=== PATIENT | male | born 2000 | race Hispanic/Latino ===

== ENCOUNTER 2023-02-27 14:22 | Emergency (ER) | payer SELFPAY ==
[2023-02-27] MEDS ORDERED: DIAZEPAM 5 MG TABLET ONE (15:21)
[2023-02-27] MEDS ORDERED: HYDROCODONE/APAP 5/325 MG TAB ONE (15:21)
[2023-02-27] MEDS ORDERED: TDAP (DIPHTH,PERTUSS(ACELL),TET VAC) 0.5 ML VIAL IMVAC ONE (15:22)
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
--- NOTE | 2023-02-27 16:03 | RAD REPORT ---
EXAM DESCRIPTION: RAD - Forearm Left - 02/27/2023 3:54 pm CLINICAL HISTORY: PAIN COMPARISON: <Comparisons> FINDINGS: No fracture or dislocation seen.
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
[2023-02-27 16:53] VITALS: BP 134/69; TEMP 97.5; O2SAT 100
== END 2023-02-27 16:49 | disposition home or self-care (01) ==
LOC: ER 14:22
DX: T14.90XA Injury, unspecified, initial encounter (principal); V49.49XA Driver injured in collision with other motor vehicles in traffic accident, initial encounter; Y92.410 Unspecified street and highway as the place of occurrence of the external cause
CPT/HCPCS: 70450; 71046; 72125; 96372; 99285

== ENCOUNTER 2024-06-03 15:40 | Emergency (ER) | payer SELFPAY ==
[2024-06-03] MEDS ORDERED: BUPIVACAINE 0.5% PF 10 ML VIAL ONE (15:55)
[2024-06-03] MEDS ORDERED: ONDANSETRON 4 MG/2 ML VIAL ONE (15:55)
[2024-06-03] MEDS ORDERED: LIDOCAINE 1% 20 ML MDV ONE (15:55)
[2024-06-03] MEDS ORDERED: MORPHINE 4 MG/ML SYR ONE ×2 (15:56→16:03)
[2024-06-03] MEDS ORDERED: TDAP (DIPHTH,PERTUSS(ACELL),TET VAC) 0.5 ML VIAL IMVAC ONE (16:00)
[2024-06-03] MEDS ORDERED: CEFAZOLIN SODIUM 1 GM/VIAL ONE (16:29)
[2024-06-03] MEDS ORDERED: CEPHALEXIN 250 MG CAP ONE (16:29)
[2024-06-03] MEDS ORDERED: NA CHLORIDE 0.9% 50 ML ONE (16:30)
--- NOTE | 2024-06-03 16:47 | RAD REPORT ---
Exam:Hand Left 3 View CLINICAL HISTORY: Left hand pain FINDINGS: Avulsion fracture second terminal tuft. No dislocation
--- NOTE | 2024-06-03 17:44 | EDPHYS ---
Physician Documentation [facility] Name: Arun Rojas Age: 24 yrs Sex: Male : 2000 Arrival Date: 06/03/2024 Time: 15:40 Bed 9 Private MD: ED Physician Ayan José HPI: 06/03 17:38 This 24 yrs old Male presents to ER via Ambulatory with complaints of marcial Laceration To Hand. 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 marcial The laceration(s) is(are) located on the palmar aspect of distal phalanx of left index finger. Onset: The symptoms/episode began/occurred just prior to arrival. Associated signs and symptoms: The patient has no apparent associated signs or symptoms. The patient has not experienced similar symptoms in the past. Historical: - Allergies: 16:10 No Known Allergies; jb4 - PMHx: 16:10 None; jb4 - PSHx: 16:10 None; jb4 - Immunization history:: Adult Immunizations unknown, Last tetanus immunization: unknown. - Infectious Disease History:: Denies. - Social history:: Smoking status: Patient denies any tobacco usage or history of. - Family history:: not pertinent. ROS: 17:38 Constitutional: Negative for fever, chills, and weight loss, Eyes: Negative for injury, marcial pain, redness, and discharge, ENT: Negative for injury, pain, and discharge, Neck: Negative for injury, pain, and swelling, Cardiovascular: Negative for chest pain, palpitations, and edema, Respiratory: Negative for shortness of breath, cough, wheezing, and pleuritic chest pain, Abdomen/GI: Negative for abdominal pain, nausea, vomiting, diarrhea, and constipation, Back: Negative for injury and pain, : Negative for injury, bleeding, discharge, and swelling, Skin: Negative for injury, rash, and discoloration, Neuro: Negative for headache, weakness, numbness, tingling, and seizure, Psych: Negative for depression, anxiety, suicide ideation, homicidal ideation, and hallucinations, Allergy/Immunology: Negative for hives, rash, and allergies, Endocrine: Negative for neck swelling, polydipsia, polyuria, polyphagia, and marked weight changes, Hematologic/Lymphatic: Negative for swollen nodes, abnormal bleeding, and unusual bruising, 17:38 MS/extremity: Positive for laceration, pain, of the palmar aspect of distal phalanx of left index finger, Exam: 17:38 Constitutional: This is a well developed, well nourished patient who is awake, alert, marcial and in no acute distress. Head/Face: Normocephalic, atraumatic. Eyes: Pupils equal round and reactive to light, extra-ocular motions intact. Lids and lashes normal. Conjunctiva and sclera are non-icteric and not injected. Cornea within normal limits. Periorbital areas with no swelling, redness, or edema. ENT: Nares patent. No nasal discharge, no septal abnormalities noted. Tympanic membranes are normal and external auditory canals are clear. Oropharynx with no redness, swelling, or masses, exudates, or evidence of obstruction, uvula midline. Mucous membranes moist. Neck: Trachea midline, no thyromegaly or masses palpated, and no cervical lymphadenopathy. Supple, full range of motion without nuchal rigidity, or vertebral point tenderness. No Meningismus. Chest/axilla: Normal chest wall appearance and motion. Nontender with no deformity. No lesions are appreciated. Cardiovascular: Regular rate and rhythm with a normal S1 and S2. No gallops, murmurs, or rubs. Normal PMI, no JVD. No pulse deficits. Respiratory: Lungs have equal breath sounds bilaterally, clear to auscultation and percussion. No rales, rhonchi or wheezes noted. No increased work of breathing, no retractions or nasal flaring. Abdomen/GI: Soft, non-tender, with normal bowel sounds. No distension or tympany. No guarding or rebound. No evidence of tenderness throughout. Back: No spinal tenderness. No costovertebral tenderness. Full range of motion. Skin: Warm, dry with normal turgor. Normal color with no rashes, no lesions, and no evidence of cellulitis. Neuro: Awake and alert, GCS 15, oriented to person, place, time, and situation. Cranial nerves II-XII grossly intact. Motor strength 5/5 in all extremities. Sensory grossly intact. Cerebellar exam normal. Normal gait. Psych: Awake, alert, with orientation to person, place and time. Behavior, mood, and affect are within normal limits. 17:38 Musculoskeletal/extremity: ROM: full active range of motion, full passive range of motion, limited active range of motion due to pain, limited passive range of motion due to pain, Circulation is intact in all extremities. Severe pain noted. Compartment Syndrome exam of affected extremity: is normal. Vital Signs: 16:06 BP 124 / 72; Pulse 87; Resp 16; Temp 98.9(O); Pulse Ox 98% on R/A; Weight 68.04 kg; jb4 Height 5 ft. 4 in. (R); Pain 10/10; 16:06 Body Mass Index 25.75 (68.04 kg, 162.56 cm) jb4 16:06 Pain Scale: Adult jb4 Laceration: 17:40 Wound Repair of 2cm ( 0.8in ) subcutaneous laceration to palmar aspect of distal marcial phalanx of left index finger. Irregularly shaped.. Distal neuro/vascular/tendon intact. Anesthesia: Local anesthetic administered with 1% lidocaine. Wound prep: Moderate cleansing by me. Skin closed with 6 5-0 Prolene using interrupted sutures and sterile technique. Dressed with Neosporin, non-adherent dressing. Patient tolerated well. MDM: 15:48 Medical Screening Exam initiated marcial 17:41 Data reviewed: vital signs, nurses notes, radiologic studies, plain films. [facility] Consideration of Admission/Observation Escalation of care including admission/observation considered. I considered the following discharge prescriptions or medication management in the emergency department Medications were administered in the Emergency Department. See MAR. Independent interpretation of the following test(s) in the Emergency Department X-Ray: My interpretation is left hand. Test considered but Not performed: Labs: no cbc, no comp met. Historians other than the Patient: Spouse/Significant Other: . Care significantly affected by the following chronic conditions: none. 06/03 15:56 Order name: Hand Left 3 View XRAY; Complete Time: 17:15 [facility] 06/03 15:56 Order name: Dressing - Wound; Complete Time: 16:25 [facility] 06/03 15:56 Order name: Gloves, Sterile; Complete Time: 16:25 [facility] 06/03 15:56 Order name: Prolene, Sutures; Complete Time: 16:25 [facility] 06/03 15:56 Order name: Setup Suture Tray; Complete Time: 16:25 [facility] Administered Medications: 16:24 Drug: Boostrix Tdap IM 0.5 ml IM once; as a single dose Route: IM; Site: right deltoid; jb4 17:44 Follow up: Response: No adverse reaction jb4 16:24 Drug: morphine IVP or IV 4 mg IVP once over 4 mins Route: IVP; Infused Over: 4 mins; jb4 Site: right antecubital; 17:44 Follow up: Response: No adverse reaction; Marked relief of symptoms jb4 16:24 Drug: Ondansetron IVP 4 mg IVP once; over 2 minutes Route: IVP; Site: right antecubital;jb4 17:44 Follow up: Response: No adverse reaction; Marked relief of symptoms jb4 16:40 Drug: ceFAZolin IVPB 1 grams IVPB once Route: IVPB; Site: right antecubital; jb4 17:10 Follow up: Response: No adverse reaction; IV Status: Completed infusion; IV Intake: [id number] 16:40 Drug: Cephalexin PO 500 mg PO once Route: PO; jb4 17:44 Follow up: Response: No adverse reaction jb4 17:31 Drug: Bupivacaine Infiltration (0.5 %) 5 ml 10 ml Infiltration once {Note: administered jb4 by ER physician .} Volume: 10 ml; Route: Infiltration; 17:31 Drug: Lidocaine Infiltration (1 %) 5 ml 20 ml Infiltration once; to bedside {Note: jb4 administered by ER physician .} Volume: 20 ml; Route: Infiltration; 18:08 Drug: Ewvqpthn-Aldeumghuh-Cyapuqsoe Topical Ointment 1 application Topical once Route: jb4 Topical; Site: wound; 18:08 Follow up: Response: Medication administered at discharge. jb4 Disposition Summary: 06/03/24 17:44 Discharge Ordered Notes: Location: Home marcial Problem: new marcial Symptoms: have improved marcial Condition: Stable marcial Diagnosis - Laceration without foreign body of left hand, initial encounter - open distal tuft marcial fracture, 1/4 nail and bed trauma Followup: marcial - With: Private Physician - When: 2 - 3 days - Reason: Recheck today's complaints, Continuance of care, Re-evaluation by your physician Followup: marcial - With: Kt Ortiz MD - When: 2 - 3 days - Reason: Recheck today's complaints, Re-evaluation by your physician Discharge Instructions: - Discharge Summary Sheet marcial - Laceration Care, Adult marcial - Laceration Care, Adult, [id number] [facility] Forms: - Medication Reconciliation Form [facility] - Antibiotic Education [facility] - Prescription Opioid Use [facility] - Patient Portal Instructions [facility] - Leadership Thank You Letter [facility] Prescriptions: - Neosporin (fax-[id number]) 3.5-400-5,000 [id number] Topical Ointment in Packet - apply 1 application TOPICAL route 3 times per day; 15 gram; Refills: 0, Product [facility] Selection Permitted - Cephalexin 500 mg Oral capsule - take 1 capsule ORAL route every 6 hours for 7 days; 28 capsule; Refills: 0, [facility] Product Selection Permitted - Ibuprofen 600 mg Oral Tablet - take 1 tablet ORAL route every 6 hours As needed take with food; 30 tablet; [facility] Refills: 0, Product Selection Permitted - Tramadol 50 mg Oral tablet - take 1 tablet ORAL route every 6-8 hours as needed; 20 tablet; Refills: 0, [facility] Product Selection Permitted Signatures: Dispatcher [employer] Ayan Kang MD MD cha Bryson, James RN RN jb4 Corrections: (The following items were deleted from the chart) 15:56 15:56 Hand Left 3 View+RAD.RAD.BRZ ordered. EDMS ARTEAGA
--- NOTE | 2024-06-03 17:44 | ER ---
Nurse's Notes [facility] Name: Arun Rojas Age: 24 yrs Sex: Male : 2000 Arrival Date: 06/03/2024 Time: 15:40 Bed 9 Private MD: Diagnosis: Laceration without foreign body of left hand, initial encounter-open distal tuft fracture, 1/4 nail and bed trauma Presentation: 06/03 16:06 Chief complaint: Patient states: I cut my finger on a table saw, I think it went to the 4 bone. Coronavirus screen: At this time, the client does not indicate any symptoms associated with coronavirus-19. Ebola Screen: No symptoms or risks identified at this time. Complicating Factors: There are no complicating factors for this patient. Initial Sepsis Screen: Does the patient meet any 2 criteria? No. Patient's initial sepsis screen is negative. Does the patient have a suspected source of infection? No. Patient's initial sepsis screen is negative. Risk Assessment: Do you want to hurt yourself or someone else? Patient reports no desire to harm self or others. Onset of symptoms was June 03, 2024. Transition of care: patient was not received from another setting of care. 16:06 Method Of Arrival: Ambulatory jb4 16:06 Acuity: GENA 4 jb4 Triage Assessment: 16:10 General: Appears in no apparent distress. uncomfortable, Behavior is calm, cooperative, jb4 appropriate for age. Pain: Complains of pain in palmar aspect of distal phalanx of left index finger Pain does not radiate. Neuro: Level of Consciousness is awake, alert, obeys commands, Oriented to person, place, time, situation. Cardiovascular: Patient's skin is warm and dry. Respiratory: Airway is patent Respiratory effort is even, unlabored, Respiratory pattern is regular, symmetrical. Derm: Skin is pink, warm \T\ dry. Musculoskeletal: Circulation, motion, and sensation intact. Range of motion: intact in all extremities. Injury Description: Laceration sustained to palmar aspect of distal phalanx of left index finger is clean, 0.5 to 2.5 cm long, was sustained 30-60 minutes ago. Historical: - Allergies: 16:10 No Known Allergies; jb4 - PMHx: 16:10 None; jb4 - PSHx: 16:10 None; jb4 - Immunization history:: Adult Immunizations unknown, Last tetanus immunization: unknown. - Infectious Disease History:: Denies. - Social history:: Smoking status: Patient denies any tobacco usage or history of. - Family history:: not pertinent. Screenin:42 [facility] ED Fall Risk Assessment (Adult) History of falling in the last 3 months, jb4 including since admission No falls in past 3 months (0 pts) Confusion or Disorientation No (0 pts) Intoxicated or Sedated No (0 pts) Impaired Gait No (0 pts) Mobility Assist Device Used No (0 pt) Altered Elimination No (0 pt) Score/Fall Risk Level 0 - 2 = Low Risk Oriented to surroundings, Maintained a safe environment. Abuse screen: Denies threats or abuse. Nutritional screening: No deficits noted. Tuberculosis screening: No symptoms or risk factors identified. Assessment: 16:42 Reassessment: Patient appears in no apparent distress at this time. Patient and/or jb4 family updated on plan of care and expected duration. Pain level reassessed. Patient is alert, oriented x 3, equal unlabored respirations, skin warm/dry/pink. Pain decreased after morphine. Pt resting more comfortably in bed and laughing with family member at the bedside. Patient states feeling better. 18:09 Reassessment: Patient appears in no apparent distress at this time. Patient and/or jb4 family updated on plan of care and expected duration. Pain level reassessed. Patient is alert, oriented x 3, equal unlabored respirations, skin warm/dry/pink. Vital Signs: 16:06 BP 124 / 72; Pulse 87; Resp 16; Temp 98.9(O); Pulse Ox 98% on R/A; Weight 68.04 kg; jb4 Height 5 ft. 4 in. (R); Pain 10/10; 16:06 Body Mass Index 25.75 (68.04 kg, 162.56 cm) jb4 16:06 Pain Scale: Adult jb4 ED Course: 15:41 Patient arrived in ED. im 15:48 Ayan José MD is Attending Physician. [facility] 16:05 Chan Avila, GRISELDA is Primary Nurse. jb4 16:10 Triage completed. jb4 16:10 Arm band placed on right wrist. jb4 16:20 Inserted saline lock: 18 gauge in right antecubital area, using aseptic technique. jb4 16:30 Hand Left 3 View XRAY In Process Unspecified. EDMS 16:42 Patient has correct armband on for positive identification. Bed in low position. Call jb4 light in reach. Side rails up X 1. Provided Education on: plan of care. 17:42 Kt Ortiz MD is Referral Physician. [facility] 18:09 Assist provider with laceration repair on palmar aspect of distal phalanx of left index jb4 finger. IV discontinued, intact, bleeding controlled, No redness/swelling at site. Pressure dressing applied. Administered Medications: 16:24 Drug: Boostrix Tdap IM 0.5 ml IM once; as a single dose Route: IM; Site: right deltoid; jb4 17:44 Follow up: Response: No adverse reaction jb4 16:24 Drug: morphine IVP or IV 4 mg IVP once over 4 mins Route: IVP; Infused Over: 4 mins; jb4 Site: right antecubital; 17:44 Follow up: Response: No adverse reaction; Marked relief of symptoms jb4 16:24 Drug: Ondansetron IVP 4 mg IVP once; over 2 minutes Route: IVP; Site: right antecubital;jb4 17:44 Follow up: Response: No adverse reaction; Marked relief of symptoms jb4 16:40 Drug: ceFAZolin IVPB 1 grams IVPB once Route: IVPB; Site: right antecubital; jb4 17:10 Follow up: Response: No adverse reaction; IV Status: Completed infusion; IV Intake: [id number] 16:40 Drug: Cephalexin PO 500 mg PO once Route: PO; jb4 17:44 Follow up: Response: No adverse reaction jb4 17:31 Drug: Bupivacaine Infiltration (0.5 %) 5 ml 10 ml Infiltration once {Note: administered jb4 by ER physician .} Volume: 10 ml; Route: Infiltration; 17:31 Drug: Lidocaine Infiltration (1 %) 5 ml 20 ml Infiltration once; to bedside {Note: jb4 administered by ER physician .} Volume: 20 ml; Route: Infiltration; 18:08 Drug: Zjqfmzjz-Wqfgkaioob-Zaxdszrwr Topical Ointment 1 application Topical once Route: jb4 Topical; Site: wound; 18:08 Follow up: Response: Medication administered at discharge. jb4 Medication: 16:42 VIS not applicable for this client. jb4 Intake: 17:10 IV: 50ml; Total: 50ml. jb4 Outcome: 17:44 Discharge ordered by MD. ceja 18:10 Patient left the ED. jb4 Signatures: Dispatcher [employer] EDAyan Quarles MD MD cha Bryson, James RN RN jb4 Jamila Milton Corrections: (The following items were deleted from the chart) 18:10 16:10 Pain: Complains of pain in dorsal aspect of distal phalanx of right index finger jb4 Pain does not radiate. jb4 18:10 16:10 Injury Description: Laceration sustained to palmar aspect of distal phalanx of jb4 right index finger is clean, 0.5 to 2.5 cm long, was sustained 30-60 minutes ago. jb4
[2024-06-03] MEDS ORDERED: BACI/NEOMYCIN/POLY OINT 15GM TOP ONE (17:50)
[2024-06-03 18:24] VITALS: BP 124/72; TEMP 98.9; O2SAT 98
== END 2024-06-03 18:10 | disposition home or self-care (01) ==
LOC: ER 15:40
DX: S62.631B Displaced fracture of distal phalanx of left index finger, initial encounter for open fracture (principal)
CPT/HCPCS: 12001; 96365; 96372; 96375; 99284; J0690; J2003; J2405